=== PATIENT | male | born 1980 | race Caucasian/White ===

== ENCOUNTER 2025-03-18 15:09 | Outpatient (AMB) | payer MEDICAID, SELFPAY ==
[2025-03-18 15:22] VITALS: BP 132/76; PULSE 73; RESP 17; TEMP 36.7; O2SAT 95; BMI 25.1
--- NOTE | 2025-03-18 15:22 | ACNOTE_ITS ---
Vital Signs 03/18/25 15:22 Height 1.85 m Height Method Stated Weight 86.296 kg Weight Measurement Method Standing Scale BMI 25.1 BP 132/76 H Blood Pressure Source Automatic Cuff Blood Pressure Location Right Upper Arm Position Sitting Respiration 17 Pulse 73 Pulse Source Monitor Temp 98.0 F Temp Source Temporal Artery Scan Pulse Oximetry (%) 95 Oxygen Delivery Method Room Air Allergies/Meds Allergies & Medications Allergies No Known Allergies Allergy (Verified 03/18/25 15:24) Medication Reconciliation acetaminophen 650 mg tablet,extended release (Tylenol 8 Hour) 650 mg PO Q8H PRN pain #30 tabs 02/21/18 [Rx Confirmed 03/18/25] ibuprofen 400 mg tablet 400 mg PO Q8H pain #21 tabs 02/21/18 [Rx Confirmed 03/18/25] famotidine 20 mg tablet 20 mg PO QDAY #14 tabs 03/18/25 [Rx] MA Intake Visit Data Collection New Patient or Established: Established Patient (seen at [facility] within 3 years) Seen by Clinical Staff ONLY (RN/MICHEAL): No Reason for Visit:: REQUESTING REFERRAL Pain Present Currently: No Pain scale:: 0 Pain Scale Used: Jones-Petersen/Numerical Client Services Account Manager Required: No PCP or OBGYN visit in last 3 months: No Hx Now: No Do You Feel Safe at Home: Yes Authorities Contacted: N/A Smoking Status Smoking Status: Never smoker Immunization / Flu Flu Vaccine in the Last 12 Months: No Flu Vaccine Exclusion Criteria: Already Received Past Medical History Past Medical History CARDIAC: Positive Cardiac Disorders and Hypercholesterolemia; Negative Congestive Heart Failure RESPIRATORY: Negative Chronic Obstructive Pulmonary Disease (COPD) GASTROINTESTINAL: Negative Gastrointestinal Disorders GENITOURINARY: Positive Genitourinary Disorders and Kidney Stones; Negative Renal Disease ENDOCRINE: Negative Endocrine Disorders, Diabetes Mellitus Type 1 or Diabetes Mellitus Type 2 Social History SMOKING STATUS: Smoking status: Never smoker SECOND HAND EXPOSURE: second hand exposure: No ALCOHOL: Alcohol Intake: Current ALCOHOL FREQUENCY: Alcohol Intake Frequency: holidays/special occasions only HOUSING: Housing: House Patient Portal Questionaires PHQ-9 PHQ-2 Over the last 2 weeks, how often have you been bothered by any of the following problems? 1. Little interest or pleasure in doing things: not at all 2. Feeling down, depressed, or hopeless: not at all Total score: 0 PHQ-9 3. Trouble falling or staying asleep, or sleeping too much: Not at all 4. Feeling tired or having little energy: Not at all 5. Poor appetite or overeating: Not at all 6. Feeling bad about yourself - or that you are a failure or have let yourself or your family down: Not at all 7. Trouble concentrating on things, such as reading the newspaper or watching television: Not at all 8. Moving or speaking so slowly that other people could have noticed? - Or the opposite - being so fidgety or restless that you have been moving around a lot more than usual: not at all 9. Thoughts that you would be better off or of hurting yourself in some way: Not at all Total score: 0 If you checked off any problems, how difficult have these problems made it for you to do your work, take care of things at home, or get along with other people?: not difficult at all Source: Developed by Drs. Gilberto Mcqueen, Cathie Casanova, Ellis Sharma and colleagues, with an educational arian from [employer]. Depression screen completed yes Social History Living Situation History Marital Status: Lives With: Family Housing: House Tobacco History Smoking Status: Never smoker Second Hand Smoke Exposure: No Alcohol History Alcohol Intake: Current Alcohol Intake Frequency: holidays/special occasions only Domestic Abuse History Do You Feel Safe at Home: Yes Review of Systems Report any current symptoms Only answer those that you have currently: Past Medical History Past Medical History Have you ever been diagnosed with any of the following: Cardiology Problems Hypercholesterolemia: Yes Congestive Heart Failure: No Respiratory Problems Chronic Obstructive Pulmonary Disease (COPD): No Genital/Urinary Problems Renal Disease: No Kidney Stones: Yes Endocrine Problems Diabetes Mellitus Type 1: No Diabetes Mellitus Type 2: No History of Present Illness HPI Narrative This patient is a 44-year-old male with no known past medical history presented to the clinic for concern of strong family history of cancer and needing referral for GI specialist for screening for colon cancer. Patient reported that he has a strong family history including his father who from a dvanced esophageal cancer mets to brain who was diagnosed at the age of 73. He also reported that his brother was diagnosed with anal cancer stage IV at the age of 49 years on chemotherapy. His mom with uterine cancer at the age of 38 years. His grandmother also with uterine cancer unknown age. His sister was getting workup for cancer as well. However she could not get workup as she in motor vehicle accident. His grandfather had pancreatic cancer possibly with colon cancer unknown age. Patient denied any weight loss or appetite changes. He endorses acid reflux for which he takes omeprazole off-and-on. He has 12.5-pack-year smoking history. He is actively smoking as well. He denies any chest pain, dizziness, nausea, vomiting or bowel changes. Given strong family history of cancer, patient will be evaluated for Stevens syndrome which patient is agreeable as well. He also was given prescription for famotidine 20 mg once daily as needed for acid reflux. He was given a referral for GI specialist, Dr. Block for further evaluation workup for screening with EGD and colonoscopy for cancer given strong family history. Patient will be followed up once he will be evaluated by GI specialist. Review of Systems Review of Systems Systems Reviewed: All systems reviewed, normal except as documented Objective/Exam Narrative Physical exam: GENERAL APPEARANCE: AxOx4, generally well-appearing male in no acute distress. HEENT: NC, AT. MMM. EOMI, clear conjunctiva, oropharynx clear. NECK: Supple without lymphadenopathy. No stiffness or restricted ROM. HEART: Regular rate and regular rhythm, normal S1/S2, no m/r/g LUNGS: CTAB, moving air well. No crackles or wheezes are heard. ABDOMEN: Soft, Mild right upper quadrant tenderness, nondistended with good bowel sounds heard. BACK: No CVAT, no obvious deformity. EXTREMITIES: Without cyanosis, clubbing or edema. NEUROLOGICAL: Grossly nonfocal. Alert and oriented, moving all 4 extremities. CN not formally tested but appear grossly intact. Observed to ambulate with normal gait. Skin: Warm and dry without any rash. Assessment & Plan Diagnosis / Problem List (1) Acid reflux: Status: Acute Qualifiers: Esophagitis presence: esophagitis presence not specified Qualified Code(s): K21.9 - Gastro-esophageal reflux disease without esophagitis Assessment & Plan: -Patient has hx of acid reflux and takes omperazole once as needed for many years. Plan: - Famotidine 20 mg once a day for acid reflux -GI referral given for workup with endoscopy to rule out H.pylori infection or any pathology (2) Family history of colon cancer: Status: Acute Assessment & Plan: - This patient is a 44-year-old male with no known past medical history presented to the clinic for concern of strong family history of cancer and needing referral for GI specialist for screening for colon cancer. Patient reported that he has a strong family history including his father who from advanced esophageal cancer mets to brain who was diagnosed at the age of 73. He also reported that his brother was diagnosed with anal cancer stage IV at the age of 49 years on chemotherapy. His mom with uterine cancer at the age of 38 years. His grandmother also with uterine cancer unknown age. His sister was getting workup for cancer as well. However she could not get workup as she in motor vehicle accident. His grandfather had pancreatic cancer possibly with colon cancer unknown age. Patient denied any weight loss or appetite changes. He endorses acid reflux for which he takes omeprazole off-and-on. He has 12.5-pack-year smoking history. He is actively smoking as well. He denies any chest pain, dizziness, nausea, vomiting or bowel changes. - Given his strong family history, patient was also provided with option of advanced cancer screening concerning for Stevens syndrome/hereditary nonpolyposis colon cancer with patient also showed interest in getting further workup. Plan: - Patient has been given referral for GI specialist, Dr. Block for further workup and evaluation including EGD and colonoscopy to screen for GI tract cancer -Advanced cancer screening form filled out including workup for Stevens syndrome - Advised to cut back on smoking (3) RUQ abdominal pain: Status: Acute Assessment & Plan: - Patient endorses right upper quadrant pain off and on. Denies nausea or vomiting. Endorses decreased water intake. Plan: - Follow-up with liver ultrasound to evaluate for gallstones (4) Smoking greater than 25 pack years: Status: Acute Assessment & Plan: - Patient has been smoking half a pack of cigarette every day for last 25 years. 12.5-pack-year history. Plan: - Follow-up on chest x-ray to evaluate any pulmonary nodules - Advised to cut back on smoking - Patient is currently not willing to quit smoking therefore nicotine patch was not offered Patient was seen and discussed with attending physician, Dr.Watanakunakorn Dr. Brigitte MD, PGY 3 Orders: Orders US liver Today R10.11 - Right upper quadrant pain XR chest 1V Today Referrals Gastroenterology K21.9 - Gastro-esophageal reflux disease without esophagitis, Z80.0 - Family history of malignant neoplasm of digestive organs Office Procedures [facility] Level of Care Nursing/Assessment Patient Status: Established Patient Nursing Assessment/Reassessment: Medication Reconciliation, Update PMH in EMR and Vital Signs Coordination of Care: Complex Care and Chronic Disease 1-5, Consent,records obtained, informed consent, Education Simp Pt/Fam and Staff clarify orders Established Patient Charge Established Patient Point Assignment: 85 Established Patient Point Charge: Level 3 (80-115) TB Screening LTBI Screening: Has patient traveled, was born, or resided for at least 1 month, or frequent border crossing into a country with an elevated TB rate: No Immunosuppression, current or planned (HIV, organ transplant, treated with biologic agents, steroids, or other immunosuppression medication): No Close contact to someone with infectious TB disease during lifetime: No Homelessness or incarceration, current or past: No TB testing indicated at this time (at least 1 yes above): No
== END 2025-03-18 16:24 | disposition home or self-care (01) ==
LOC: HODAHC 15:09
PROVIDERS: PCP Family Medicine; Referring Provider Family Medicine; Supervising Provider Internal Medicine; Visit Provider Student in an Organized Health Care Education/Training Program
DX: K21.9 Gastro-esophageal reflux disease without esophagitis (principal); Z80.0 Family history of malignant neoplasm of digestive organs; R10.11 Right upper quadrant pain; F17.210 Nicotine dependence, cigarettes, uncomplicated
CPT/HCPCS: 99213; G0463